=== PATIENT | male | born 1985 | race Hispanic/Latino ===

== ENCOUNTER 2020-05-22 20:13 | Emergency (ER) | payer OTHER, SELFPAY ==
[2020-05-22] MEDS ORDERED: Acetaminophen 500 MG TAB ONE (21:46)
[2020-05-22 22:06] LABS: #Lymphocytes 1.2 thou/uL (1.20-3.40); #Monocytes 0.6 thou/uL (0.11-0.59); #Neutrophils 3.8 thou/uL (1.40-6.50); %Basophils 0.5 % (0.0-1.0); %Eosinophils 0.5 % (0.0-10.0); %Lymphocytes 21.9 % (21.0-51.0); %Monocytes 9.9 % (0.0-10.0); %Neutrophils 67.2 % (42.0-75.0); Hemoglobin 14.9 g/dL (14.0-18.0); Mean Corpuscular HGB CONC 33.5 g/dL (32.0-36.0); Mean Corpuscular Hemoglobin 29.3 pg (27.0-31.0); Mean Corpuscular Volume 87.4 fL (78.0-98.0); Mean Platelet Volume 8.5 fL (7.4-10.4); Platelet Count 200 thou/uL (130-400); RBC Distribution Width 11.6 % (11.5-14.5); White Blood Cell (WBC) Count 5.7 thou/uL (4.8-10.8)
[2020-05-22] MEDS ORDERED: Cefepime 2 GM VIAL ONE (22:17)
[2020-05-22] MEDS ORDERED: Vancomycin 1 GM/200 ML BAG ONE (22:17)
--- NOTE | 2020-05-22 22:18 | RAD ---
XR Chest 1 View Portable History: Chest pain Comparison: None. Findings: Lungs are hypoinflated with vascular crowding and bibasilar atelectasis. No pneumothorax. S purious enlargement of the cardiac silhouette. No acute osseous abnormality. Impression: No acute intrathoracic abnormality.
[2020-05-22 22:31] LABS: ALT (SGPT) 37 U/L (8-55); AST (SGOT) 23 U/L (5-34); Albumin 4.6 g/dL (3.5-5.0); Alkaline Phosphatase 98 U/L (40-110); Anion Gap 16 mmol/L (10-20); BUN (Urea Nitrogen) 15 mg/dL (8.9-20.6); Bilirubin, Total 0.5 mg/dL (0.2-1.2); CK (CPK) 200 U/L (30-200); Calc. Creatinine Clearance 0 mL/min (70-130); Calcium 9.2 mg/dL (7.8-10.44); Carbon Dioxide 24 mmol/L (22-29); Chloride 98 mmol/L (98-107); Estimated GFR-MDRD 71; Globulin 3.1 g/dL (2.4-3.5); Glucose 286 mg/dL (70-105); Magnesium 1.7 mg/dL (1.6-2.6); Potassium 4.2 mmol/L (3.5-5.1); Protein, Total 7.7 g/dL (6.0-8.3); Sodium 134 mmol/L (136-145)
[2020-05-22 22:33] LABS: Bacteria/HPF None Seen HPF (None Seen); Bilirubin Negative (Negative); Blood, Urine 1+ (Negative); Clarity Clear (Clear); Glucose, Urine (Dipstick) Greater than 1000 mg/dL (Negative); Ketone, Urine 40 mg/dL (Negative); Leukocyte Negative Leu/uL (Negative); Nitrite Negative (Negative); Protein, Urine (Dipstick) 70 mg/dL (Neg-Trace); RBC/HPF 0-3 HPF (0-3); Squamous Epithelial 0-3 HPF (0-3); Urobilinogen Normal mg/dL (Less than 2); WBC/HPF 0-3 HPF (0-3); pH, Urine 5.5 (5.0-9.0)
[2020-05-24 12:13] LABS: SARS-CoV-2 MS2 Positive; SARS-CoV-2 N Gene Positive; SARS-CoV-2 S Gene Positive; SARS-CoV-2 orf1ab Positive
== END 2020-05-22 23:43 | disposition home or self-care (01) ==
LOC: ERS 20:13
DX: U07.1 COVID-19 (principal); B34.9 Viral infection, unspecified; J06.9 Acute upper respiratory infection, unspecified; R73.9 Hyperglycemia, unspecified; R42 Dizziness and giddiness
CPT/HCPCS: 71045; 80053; 81003; 81015; 82550; 83605; 83735; 84484; 85025; 87040; 87635; 93005; 96365; J0692; J3370; U0003